=== PATIENT | male | born 1935 | race Caucasian/White ===

== ENCOUNTER 2018-04-01 08:15 | Emergency (ER) | payer OTHER ==
[~2018-04-01] VITALS: Ht 185.4 cm; Wt 133.8 kg
[~2018-04-01 08:15] MED LIST: ACID REDUCER 1150 MG PO; ALLO100 PO; AMIO200 PO; AMLO5 PO; ASPI81CH PO; ATOR10; ATOR10 PO; Amiodarone HCl200 MG PO; Ativan1 MG SL; IBUP800; Kristalose20 GM PO; LEVSOD125 PO; LEVSOD150; LEVSOD75 PO; LISI5 PO; MECL25 PO; METF500 PO; METO25ER PO; METO50ER PO; OMEP20ER PO; OXYACE5T PO; PROC25S PR; Pepcid40 MG PO; Prilosec Otc20 MG; RXOXYACE PO; Toprol Xl25 MG PO; [UNRECOGNIZED DRUG - OTHER]; [UNRECOGNIZED DRUG - REMARK]
[2018-04-01 08:49] LABS: BASOPHILS ABSOLUTE AUTO 0.05 K/mm3 (0.00-0.23); BASOPHILS PERCENT AUTO 0 % (0-2); EOSINOPHILS ABSOLUTE AUTO 0.31 K/mm3 (0.00-0.68); EOSINOPHILS PERCENT AUTO 2 % (0-6); Hematocrit 40.2 % (37.0-53.0); Hemoglobin 13.1 g/dL (13.5-17.5); IMMATURE GRAN ABSOLUTE AUTO 0.03 K/mm3 (0.00-0.10); IMMATURE GRAN PERCENT AUTO 0 % (0-1); LYMPHOCYTES ABSOLUTE AUTO 0.83 K/mm3 (0.84-5.20); LYMPHOCYTES PERCENT AUTO 6 % (21-46); MONOCYTES ABSOLUTE AUTO 1.24 K/mm3 (0.16-1.47); MONOCYTES PERCENT AUTO 10 % (4-13); Mean Corpuscular HGB 28.6 pg (26.0-34.0); Mean Corpuscular HGB Conc 32.6 g/dL (31.5-36.5); Mean Corpuscular Volume 88 fL (80-100); Mean Platelet Volume 10.4 fL (9.1-12.4); NEUTROPHILS ABSOLUTE AUTO 10.66 K/mm3 (1.96-9.15); NEUTROPHILS PERCENT AUTO 81 % (41-73); Platelet Count 261 K/mm3 (150-400); RDW Coefficient Variation 14.6 % (11.7-14.2); RDW Standard Deviation 46.9 fL (35.1-46.3); Red Blood Cell Count 4.58 M/mm3 (4.30-5.90); White Blood Cell Count 13.12 K/mm3 (4.00-11.30)
[2018-04-01] MEDS ORDERED: TAMS.4ER PO (08:57)
[2018-04-01] MEDS ORDERED: ATOR10 PO (08:58)
[2018-04-01] MEDS ORDERED: AMLO5 PO (08:58)
[2018-04-01 08:59] LABS: International Normalized Ratio 1.03; Prothrombin Time Results 10.6 Sec (9.7-11.5)
[2018-04-01] MEDS ORDERED: FURO20 PO (08:59)
[2018-04-01] MEDS ORDERED: POTCHL10ER PO (08:59)
[2018-04-01] MEDS ORDERED: GABA300 PO (08:59)
[2018-04-01 09:08] LABS: Anion Gap 7 mmol/L (6-16); Blood Urea Nitrogen 32 mg/dL (8-24); Bun/Creatinine Ratio 23.2 (12.0-20.0); CO2, Blood 24 mmol/L (21-32); Calcium, Blood 8.7 mg/dL (8.5-10.1); Chloride, Blood 106 mmol/L (98-108); Creatinine, Blood 1.38 mg/dL (0.60-1.20); Glomerular Filtration Rate 52 (60-); Glucose, Blood 212 mg/dL (70-99); Potassium, Blood 4.3 mmol/L (3.5-5.5); Sodium, Blood 137 mmol/L (136-145); Troponin I <0.015 ng/mL (0.000-0.040)
[2018-04-01 11:15] LABS: Bilirubin, Urine Neg (Neg); Blood, Urine Neg (Neg); Glucose Qualitative, Urine Neg (Neg); Ketones, Urine Neg (Neg); Leukocyte Esterase, Urine Neg (Neg); Nitrite, Urine Neg (Neg); Protein, Urine Neg (Neg); Specific Gravity, Urine 1.015 (1.003-1.022); Urobilinogen, Urine NORM (Normal)
[2018-04-01 11:20] LABS: Appearance, Urine Clear (Clear); Color, Urine Yellow (P-Yellow)
[2018-04-01] MEDS ORDERED: Zithromax250 MG PO (12:01)
[2018-04-01] MEDS ORDERED: BENZ100A PO (12:03)
== END 2018-04-01 12:21 | disposition home or self-care (01) ==
LOC: ER 08:15
PROVIDERS: Emergency Medicine
DX: J44.0 Chronic obstructive pulmonary disease with (acute) lower respiratory infection (principal); J18.1 Lobar pneumonia, unspecified organism; Z88.1 Allergy status to other antibiotic agents; Z79.899 Other long term (current) drug therapy; Z79.84 Long term (current) use of oral hypoglycemic drugs; Z79.82 Long term (current) use of aspirin; I10 Essential (primary) hypertension; E03.9 Hypothyroidism, unspecified; Z87.891 Personal history of nicotine dependence
CPT/HCPCS: 36415; 71046; 80048; 81003; 83690; 83880; 84484; 85025; 85610; 93005; 93010; 94640; 96365; 99285-25; J0696

== ENCOUNTER 2018-09-23 07:38 | Day surgery (SDC) | payer OTHER ==
[~2018-09-23] VITALS: Ht 185.4 cm; Wt 137.0 kg
[~2018-09-23 07:38] MED LIST changes: +ALBU3IS INH; +BENZ100A PO; +FOLGARD TABLET1 EACH PO; +FURO20 PO; +GABA300 PO; +LEVSOD150 PO; +POTCHL10ER PO; +STIOLTO RESPIMAT4 GM INH; +TAMS.4ER PO; +Zithromax250 MG PO
--- NOTE | 2018-09-23 09:03 | NUR ---
PT LAYING IN BED RELAXING WITH CALL LIGHT IN REACH.
--- NOTE | 2018-09-23 10:42 | NUR ---
DR LOPEZ AND SANDY MARQUEZ WERE IN THE ROOM TO SEE THE PATIENT.
--- NOTE | 2018-09-24 07:19 | NUR ---
SUMMARY PT REMAINS A&O X4,TEGADERM DRSG C/D/I, LEFT ARM REMAINS ELEVATED IN SLING. PAIN MANAGED WITH PO ROXYCODONE. 1 ASSIST USING PERSONAL CANE. PT TO XRAY THIS AM. REPORT GIVEN TO DAY RN. CALL LIGHT IN REACH.
--- NOTE | 2018-09-24 11:33 | NUR ---
DC'D HOME, DC INSTRUCTIONS GIVEN, VERBALIZED UNDERSTANDING, PT GIVEN DC INST. HANDOUT FROM DR. LOPEZ'S OFFICE.
== END 2018-09-24 11:32 | disposition home or self-care (01) ==
LOC: MHTC 07:38 → SURS 13:22 → MHTC 09-24 11:32
DX: I44.30 Unspecified atrioventricular block (principal); I42.9 Cardiomyopathy, unspecified; I47.2 Ventricular tachycardia; I10 Essential (primary) hypertension; E11.9 Type 2 diabetes mellitus without complications; I25.10 Atherosclerotic heart disease of native coronary artery without angina pectoris; J44.9 Chronic obstructive pulmonary disease, unspecified; E78.5 Hyperlipidemia, unspecified; E03.9 Hypothyroidism, unspecified; M10.9 Gout, unspecified; Z88.1 Allergy status to other antibiotic agents; Z87.891 Personal history of nicotine dependence; Z79.899 Other long term (current) drug therapy; E66.01 Morbid (severe) obesity due to excess calories
CPT/HCPCS: 33249; 71045; 71046; 94640; 94760; 99152; 99153; A9270; C1721; C1895; C1898; J0690; J1644; J2250; J3010; J7040

== ENCOUNTER 2020-03-28 12:18 | Emergency (ER) | payer MEDICARE ==
[~2020-03-28] VITALS: Ht 185.4 cm; Wt 151.9 kg
[2020-03-28 14:15] LABS: BASOPHILS ABSOLUTE AUTO 0.06 K/mm3 (0.00-0.23); BASOPHILS PERCENT AUTO 1 % (0-2); EOSINOPHILS PERCENT AUTO 2 % (0-6); Hematocrit 42.6 % (37.0-53.0); Hemoglobin 13.5 g/dL (13.5-17.5); IMMATURE GRAN ABSOLUTE AUTO 0.02 K/mm3 (0.00-0.10); IMMATURE GRAN PERCENT AUTO 0 % (0-1); LYMPHOCYTES ABSOLUTE AUTO 0.96 K/mm3 (0.84-5.20); LYMPHOCYTES PERCENT AUTO 11 % (21-46); MONOCYTES ABSOLUTE AUTO 0.86 K/mm3 (0.16-1.47); MONOCYTES PERCENT AUTO 10 % (4-13); Mean Corpuscular HGB 29.5 pg (26.0-34.0); Mean Corpuscular HGB Conc 31.7 g/dL (31.5-36.5); Mean Corpuscular Volume 93 fL (80-100); Mean Platelet Volume 10.9 fL (9.1-12.4); NEUTROPHILS ABSOLUTE AUTO 6.92 K/mm3 (1.96-9.15); NEUTROPHILS PERCENT AUTO 77 % (41-73); Platelet Count 249 K/mm3 (150-400); RDW Coefficient Variation 14.5 % (11.7-14.2); RDW Standard Deviation 49.3 fL (35.1-46.3); Red Blood Cell Count 4.57 M/mm3 (4.30-5.90); White Blood Cell Count 9.02 K/mm3 (4.00-11.30)
[2020-03-28 14:29] LABS: Albumin, Blood 3.3 g/dL (3.4-5.0); Albumin/Globulin Ratio 0.8 (0.8-1.8); Bilirubin, Total 0.7 mg/dL (0.1-1.0); Bun/Creatinine Ratio 21.6 (12.0-20.0); Calcium, Blood 8.7 mg/dL (8.5-10.1); Creatinine, Blood 1.39 mg/dL (0.60-1.20); Globulin, Blood 4.1 g/dL (2.2-4.0); Potassium, Blood 4.9 mmol/L (3.5-5.5); Total Protein, Blood 7.4 g/dL (6.4-8.2); Troponin I 0.021 ng/mL (0.000-0.040)
== END 2020-03-28 16:39 | disposition home or self-care (01) ==
LOC: ER 12:18
PROVIDERS: Emergency Medicine
DX: I11.0 Hypertensive heart disease with heart failure (principal); R50.9 Fever, unspecified; E07.9 Disorder of thyroid, unspecified; E03.9 Hypothyroidism, unspecified; Z88.1 Allergy status to other antibiotic agents; Z87.891 Personal history of nicotine dependence; Z79.899 Other long term (current) drug therapy
CPT/HCPCS: 36415; 71045; 80053; 83880; 84484; 85025; 93005; 93010; 96374; 99285-25; J1940

== ENCOUNTER 2020-11-09 15:52 | Observation (INO) | payer MEDICARE ==
[~2020-11-09] VITALS: Ht 185.4 cm; Wt 159.7 kg
[2020-11-09 16:37] LABS: BASOPHILS ABSOLUTE AUTO 0.02 K/mm3 (0.00-0.23); BASOPHILS PERCENT AUTO 0 % (0-2); EOSINOPHILS PERCENT AUTO 0 % (0-6); Hematocrit 43.1 % (37.0-53.0); Hemoglobin 14.1 g/dL (13.5-17.5); IMMATURE GRAN ABSOLUTE AUTO 0.07 K/mm3 (0.00-0.10); IMMATURE GRAN PERCENT AUTO 1 % (0-1); LYMPHOCYTES ABSOLUTE AUTO 1.07 K/mm3 (0.84-5.20); LYMPHOCYTES PERCENT AUTO 9 % (21-46); MONOCYTES ABSOLUTE AUTO 0.73 K/mm3 (0.16-1.47); MONOCYTES PERCENT AUTO 6 % (4-13); Mean Corpuscular HGB 29.7 pg (26.0-34.0); Mean Corpuscular HGB Conc 32.7 g/dL (31.5-36.5); Mean Corpuscular Volume 91 fL (80-100); Mean Platelet Volume 10.8 fL (9.1-12.4); NEUTROPHILS PERCENT AUTO 84 % (41-73); Platelet Count 212 K/mm3 (150-400); RDW Coefficient Variation 14.6 % (11.7-14.2); RDW Standard Deviation 48.9 fL (35.1-46.3); Red Blood Cell Count 4.74 M/mm3 (4.30-5.90); White Blood Cell Count 11.49 K/mm3 (4.00-11.30)
[2020-11-09 16:57] LABS: Bilirubin, Total 0.7 mg/dL (0.1-1.0); Bun/Creatinine Ratio 22.8 (12.0-20.0); Calcium, Blood 9.9 mg/dL (8.5-10.1); Creatinine, Blood 2.19 mg/dL (0.60-1.20); Globulin, Blood 4.1 g/dL (2.2-4.0); Potassium, Blood 4.9 mmol/L (3.5-5.5); Total Protein, Blood 8.1 g/dL (6.4-8.2)
[2020-11-09 17:01] LABS: Free Thyroxine 0.17 ng/dL (0.70-1.60)
[2020-11-09 17:39] LABS: Source, Urine Clean Catch
[2020-11-09] MEDS ORDERED: METO25ER PO (17:44)
[2020-11-09 17:45] LABS: Appearance, Urine Clear (Clear); Bilirubin, Urine Neg (Neg); Blood, Urine 2+ (Neg); Color, Urine Yellow (P-Yellow); Glucose Qualitative, Urine 4+ (Neg); Ketones, Urine Neg (Neg); Leukocyte Esterase, Urine Neg (Neg); Nitrite, Urine Neg (Neg); Protein, Urine 1+ (Neg); Specific Gravity, Urine 1.015 (1.003-1.022); Urobilinogen, Urine NORM (Normal)
[2020-11-09] MEDS ORDERED: ALLO100 PO (17:45)
[2020-11-09] MEDS ORDERED: FLUO.01TC (17:46)
[2020-11-09 17:59] LABS: Bacteria Mod /hpf; Red Blood Cells, Urine Rare /hpf (0-2); Squamous Epithelial Cells Rare /hpf (Few); White Blood Cells, Urine Rare /hpf (0-5)
[2020-11-09] MEDS ORDERED: IPRAT-ALBUT 0.5-3 ML NEB (19:15)
[2020-11-09] MEDS ORDERED: LISI20 PO (19:17)
[2020-11-09] MEDS ORDERED: OZEMPIC0.25 MG/0. SC (19:18)
[2020-11-09] MEDS ORDERED: ANORO ELLIPTA1 EAC1 INH (19:18)
[2020-11-09] MEDS ORDERED: METFORMIN HCL500 M3 PO (19:21)
[2020-11-09] MEDS ORDERED: SYNTHROID125 MC1 PO (19:23)
[2020-11-09] MEDS ORDERED: ATORVASTATIN CA20 MG PO (19:23)
[2020-11-10 05:41] LABS: BASOPHILS ABSOLUTE AUTO 0.04 K/mm3 (0.00-0.23); BASOPHILS PERCENT AUTO 0 % (0-2); EOSINOPHILS ABSOLUTE AUTO 0.07 K/mm3 (0.00-0.68); EOSINOPHILS PERCENT AUTO 1 % (0-6); Hematocrit 42.4 % (37.0-53.0); Hemoglobin 13.8 g/dL (13.5-17.5); IMMATURE GRAN ABSOLUTE AUTO 0.04 K/mm3 (0.00-0.10); IMMATURE GRAN PERCENT AUTO 0 % (0-1); LYMPHOCYTES ABSOLUTE AUTO 1.45 K/mm3 (0.84-5.20); LYMPHOCYTES PERCENT AUTO 14 % (21-46); MONOCYTES ABSOLUTE AUTO 0.77 K/mm3 (0.16-1.47); MONOCYTES PERCENT AUTO 8 % (4-13); Mean Corpuscular HGB 29.6 pg (26.0-34.0); Mean Corpuscular HGB Conc 32.5 g/dL (31.5-36.5); Mean Corpuscular Volume 91 fL (80-100); Mean Platelet Volume 10.8 fL (9.1-12.4); NEUTROPHILS ABSOLUTE AUTO 7.93 K/mm3 (1.96-9.15); NEUTROPHILS PERCENT AUTO 77 % (41-73); Platelet Count 193 K/mm3 (150-400); RDW Coefficient Variation 14.7 % (11.7-14.2); RDW Standard Deviation 48.9 fL (35.1-46.3); Red Blood Cell Count 4.66 M/mm3 (4.30-5.90)
--- NOTE | 2020-11-10 06:20 | NUR ---
SHIFT SUMMARY NEW ER ADMIT THIS SHIFT, NO ACUTE CHANGES SINCE ASSUMING CARE, NO C/O ANY KIND, SLEPT T/O THE NIGHT SLEEPING AT THIS TIME, USES CALL LIGHT APPROP, ABLE TO MAKE NEEDS KNOWN. [facility]IL REPORT GIVEN TO DAY RN.
[2020-11-10 06:23] LABS: Albumin, Blood 3.6 g/dL (3.4-5.0); Anion Gap 7 mmol/L (6-16); Blood Urea Nitrogen 52 mg/dL (8-24); CO2, Blood 29 mmol/L (21-32); Calcium, Blood 9.6 mg/dL (8.5-10.1); Chloride, Blood 99 mmol/L (98-108); Creatinine, Blood 2.17 mg/dL (0.60-1.20); Glomerular Filtration Rate 29 (60-); Glucose, Blood 291 mg/dL (70-99); Magnesium, Blood 2.2 mg/dL (1.6-2.4); Phosphorus, Blood 2.9 mg/dL (2.5-4.9); Potassium, Blood 4.4 mmol/L (3.5-5.5); Sodium, Blood 135 mmol/L (136-145); Uric Acid, Blood 8.8 mg/dL (3.5-7.2)
--- NOTE | 2020-11-10 18:30 | NUR ---
Update 11/10/20: Per chart review with Dr. Maldonado this am, Dr. Aggarwal will be consulting regarding patients care. It is likely that pt. might be appropriate for discharge in the next 24-48 hours. Will provide discharge planning and care coordination when indicated. OT indicating a need for HHC, life alert, walker, and shower chair. I will discuss DME with pt. in the am.
--- NOTE | 2020-11-10 18:56 | NUR ---
PATIENT A/OX4, UP WITH PT/OT TODAY WITH FWW AND 1 ASSIST. MAINTAINING SATS ON RA. DENIES ANY PAIN. TOLERATING ADA DIET. ACHS BLOOD SUGARS. BLOOD SUGARS REMAINS ELEVATED. 5 UNITS NOVOLOG ADDED WITH MEALS ALONG WITH MEDIUM SS. ECHO COMPLETED TODAY AND RENAL ULTRASOUND. PATIENT VOIDING IN URINAL. VSS, SOB WITH EXERTION. CALM AND COOPERATIVE WITH CARE THIS SHIFT, CALLING APPROPRIATELY FOR ASSISTANCE.
--- NOTE | 2020-11-11 03:55 | NUR ---
SHIFT SUMMARY NO ACUTE CHANGES THIS SHIFT, A&O W/CONFUSION WHEN WAKING, VSS, NS INFUSING, BED ALARM ACTIVE, SLEEPING AT THIS TIME, CALL LIGHT IN REACH, WILL CONT TO MONITOR UNTIL REPORT GIVEN TO DAY RN.
[2020-11-11 05:49] LABS: BASOPHILS ABSOLUTE AUTO 0.07 K/mm3 (0.00-0.23); BASOPHILS PERCENT AUTO 1 % (0-2); EOSINOPHILS ABSOLUTE AUTO 0.27 K/mm3 (0.00-0.68); EOSINOPHILS PERCENT AUTO 3 % (0-6); Hematocrit 43.7 % (37.0-53.0); Hemoglobin 14.3 g/dL (13.5-17.5); IMMATURE GRAN ABSOLUTE AUTO 0.03 K/mm3 (0.00-0.10); IMMATURE GRAN PERCENT AUTO 0 % (0-1); LYMPHOCYTES ABSOLUTE AUTO 1.46 K/mm3 (0.84-5.20); LYMPHOCYTES PERCENT AUTO 18 % (21-46); MONOCYTES ABSOLUTE AUTO 0.56 K/mm3 (0.16-1.47); MONOCYTES PERCENT AUTO 7 % (4-13); Mean Corpuscular HGB 29.8 pg (26.0-34.0); Mean Corpuscular HGB Conc 32.7 g/dL (31.5-36.5); Mean Corpuscular Volume 91 fL (80-100); Mean Platelet Volume 10.7 fL (9.1-12.4); NEUTROPHILS ABSOLUTE AUTO 5.67 K/mm3 (1.96-9.15); NEUTROPHILS PERCENT AUTO 70 % (41-73); Platelet Count 187 K/mm3 (150-400); RDW Coefficient Variation 14.7 % (11.7-14.2); RDW Standard Deviation 49.1 fL (35.1-46.3); White Blood Cell Count 8.06 K/mm3 (4.00-11.30)
[2020-11-11 06:39] LABS: Bun/Creatinine Ratio 26.5 (12.0-20.0); Calcium, Blood 9.5 mg/dL (8.5-10.1); Potassium, Blood 4.5 mmol/L (3.5-5.5)
--- NOTE | 2020-11-11 17:51 | NUR ---
PATIENT A/OX4, UP WITH FWW AND 1 ASSIST. SEEN BY PT/OT AND HOME WITH HOME HEALTH IS RECOMMENDED. SKIN INTACT. TOLERATING ADA DIET. ACHS BLOOD SUGARS, LONG ACTING INCREASED TODAY. VSS, ON RA. SOB WITH EXERTION. IV TO L FA WNL AND SL. CALM AND COOPERATIVE WITH CARE, CALLS APPROPRIATELY FOR ASSISTANCE.
--- NOTE | 2020-11-12 05:47 | NUR ---
SHIFT SUMMARY A/O, ABLE TO MAKE NEEDS KNOWN. COOPERATIVE WITH CARE. ANSWERS QUESTIONS APPROPRIATELY. NO ACUTE CHANGES NOTED OVERNIGHT. APPEARED TO REST MUCH OF THE NIGHT. BED REMAINS IN LOWEST POSITION. CALL LIGHT AND BELONGINGS WITHIN REACH. CONTINUE [facility] CURRENT PLAN OF CARE.
--- NOTE | 2020-11-12 06:28 | NUR ---
SHIFT SUMMARY NO ACUTE ISSUES NOTED THIS SHIFT. CALL LIGHT WITHIN REACH. IV PATENT AND FLUSHED.
[2020-11-12] MEDS ORDERED: LEVSOD150 PO (14:09)
[2020-11-12] MEDS ORDERED: NOVOLOG FL100 UNIT/3 SC (14:15)
[2020-11-12] MEDS ORDERED: INSULANPEN SC (14:18)
--- NOTE | 2020-11-12 17:30 | NUR ---
PT WAS DISCHARGED ALERT AND ORIENTED MAKING NO COMPLAINTS. PT WAS EDUCATED ON MEDICATIONS AND FOLLOW APPOINTMENTS NEEDED. WAS ABLE TO VERBALIZE UNDERSTANDING. LEFT VIA WHEELCHAIR AND MET BY FAMILY FOR TRANSPORT HOME.
--- NOTE | 2020-11-14 09:00 | NUR ---
IMPORTANT DISCHARGE DETAILS: PATIENT AND CAREGIVER ADVISED THAT PT. NEEDS TO BRING MEDICATIONS TO HOSPITAL F/U APPT. THERE WAS QUITE A BIT OF CONFUSION REGARDING HIS MEDICATIONS. NEED TO ENSURE THAT MEDICATIONS WERE PICKED UP FROM THE PHARMACY AND THAT PATIENT IS TAKING ONLY THOSE ON THE FINAL LIST THAT DR. SANTIAGO PREPARED. I HAVE ADDED CHRONIC CARE MANAGEMENT REFERRAL TO CHART. FAMILY HAS BEEN ASKED TO ASSIST PATIENT WITH MEDICATIONS. FOLLOW-UP LABS INDICATED AND VISIT NEEDED WITHIN ONE WEEK.
== END 2020-11-12 16:01 | disposition home or self-care (01) ==
LOC: ER 15:52 → MEDS 15:53 → ERHOLD 15:53 → MEDS 15:54 → ERHOLD 19:11 → MEDS 19:11 → ER 19:11 → MEDS 21:45 → ERHOLD 21:45 → MEDS 11-12 16:01
PROVIDERS: Emergency Medicine; Physician Assistant; ADMIT Hospitalist
DX: E11.65 Type 2 diabetes mellitus with hyperglycemia (principal); N17.9 Acute kidney failure, unspecified; I13.0 Hypertensive heart and chronic kidney disease with heart failure and stage 1 through stage 4 chronic kidney disease, or unspecified chronic kidney disease; I50.9 Heart failure, unspecified; E11.22 Type 2 diabetes mellitus with diabetic chronic kidney disease; N18.32 Chronic kidney disease, stage 3b; I48.0 Paroxysmal atrial fibrillation; J44.9 Chronic obstructive pulmonary disease, unspecified; E03.9 Hypothyroidism, unspecified; E78.5 Hyperlipidemia, unspecified; M10.9 Gout, unspecified; I44.0 Atrioventricular block, first degree; I35.0 Nonrheumatic aortic (valve) stenosis; N52.9 Male erectile dysfunction, unspecified; E66.01 Morbid (severe) obesity due to excess calories; I25.10 Atherosclerotic heart disease of native coronary artery without angina pectoris; N40.0 Benign prostatic hyperplasia without lower urinary tract symptoms; Z87.891 Personal history of nicotine dependence; Z68.42 Body mass index [BMI] 45.0-49.9, adult; Z91.14 Patient's other noncompliance with medication regimen
CPT/HCPCS: 36415; 76770; 80048; 80053; 80069; 81001; 82947; 83036; 83690; 83735; 83880; 84439; 84443; 84550; 85025; 87086; 93005; 93010; 93306; 94640; 94664; 94760; 96372; 97116; 97116-CQ; 97161; 97165; 97530; 97530-CO; 97530-CQ; 97535; 97535-CO; 99284-25; A9270; G0378; J1650; J1815; J7030

== ENCOUNTER 2021-04-11 15:17 | Inpatient (IN) | payer MEDICARE ==
[~2021-04-11] VITALS: Ht 188 cm; Wt 151.5 kg
[~2021-04-11 15:17] MED LIST changes: +ANORO ELLIPTA1 EAC1 INH; +ATORVASTATIN CA20 MG PO; +FLUO.01TC; +INSULANPEN SC; +IPRAT-ALBUT 0.5-3 ML NEB; +LISI20 PO; +METFORMIN HCL500 M3 PO; +NOVOLOG FL100 UNIT/3 SC; +OZEMPIC0.25 MG/0. SC; +SYNTHROID125 MC1 PO
[2021-04-11 16:21] LABS: BASOPHILS ABSOLUTE AUTO 0.05 K/mm3 (0.00-0.23); BASOPHILS PERCENT AUTO 1 % (0-2); EOSINOPHILS ABSOLUTE AUTO 0.04 K/mm3 (0.00-0.68); EOSINOPHILS PERCENT AUTO 0 % (0-6); Hematocrit 39.4 % (37.0-53.0); Hemoglobin 13.1 g/dL (13.5-17.5); IMMATURE GRAN ABSOLUTE AUTO 0.09 K/mm3 (0.00-0.10); IMMATURE GRAN PERCENT AUTO 1 % (0-1); LYMPHOCYTES ABSOLUTE AUTO 0.35 K/mm3 (0.84-5.20); LYMPHOCYTES PERCENT AUTO 4 % (21-46); MONOCYTES PERCENT AUTO 16 % (4-13); Mean Corpuscular HGB 29.4 pg (26.0-34.0); Mean Corpuscular HGB Conc 33.2 g/dL (31.5-36.5); Mean Corpuscular Volume 88 fL (80-100); NEUTROPHILS ABSOLUTE AUTO 7.58 K/mm3 (1.96-9.15); NEUTROPHILS PERCENT AUTO 79 % (41-73); NRBC ABSOLUTE 0.02 K/mm3 (0.00-0.02); NRBC Auto 0.2 /100 WBC (0.0-0.2); RDW Coefficient Variation 14.6 % (11.7-14.2); RDW Standard Deviation 47.2 fL (35.1-46.3); Red Blood Cell Count 4.46 M/mm3 (4.30-5.90); White Blood Cell Count 9.61 K/mm3 (4.00-11.30)
[2021-04-11 16:22] LABS: Mean Platelet Volume 11.3 fL (9.1-12.4)
[2021-04-11 16:24] LABS: Albumin, Blood 3.4 g/dL (3.4-5.0); Albumin/Globulin Ratio 0.8 (0.8-1.8); Bilirubin, Total 1.1 mg/dL (0.1-1.0); Bun/Creatinine Ratio 20.8 (12.0-20.0); Calcium, Blood 8.8 mg/dL (8.5-10.1); Creatinine, Blood 1.49 mg/dL (0.60-1.20); Globulin, Blood 4.2 g/dL (2.2-4.0); Potassium, Blood 4.3 mmol/L (3.5-5.5); Total Protein, Blood 7.6 g/dL (6.4-8.2); Troponin I 0.07 ng/mL (0.000-0.040)
[2021-04-11 16:28] LABS: PCO2 Arterial 48.6 mmHg (35-45); PO2 Arterial 66.6 mmHg (80-100); pH Blood Arterial 7.38 (7.35-7.45)
[2021-04-11 16:48] LABS: Platelet Count 157 K/mm3 (150-400)
[2021-04-12 04:17] LABS: BASOPHILS ABSOLUTE AUTO 0.03 K/mm3 (0.00-0.23); BASOPHILS PERCENT AUTO 0 % (0-2); EOSINOPHILS ABSOLUTE AUTO 0.01 K/mm3 (0.00-0.68); EOSINOPHILS PERCENT AUTO 0 % (0-6); Hematocrit 42.9 % (37.0-53.0); Hemoglobin 13.9 g/dL (13.5-17.5); IMMATURE GRAN ABSOLUTE AUTO 0.04 K/mm3 (0.00-0.10); IMMATURE GRAN PERCENT AUTO 0 % (0-1); LYMPHOCYTES ABSOLUTE AUTO 0.24 K/mm3 (0.84-5.20); LYMPHOCYTES PERCENT AUTO 3 % (21-46); MONOCYTES ABSOLUTE AUTO 1.25 K/mm3 (0.16-1.47); MONOCYTES PERCENT AUTO 14 % (4-13); Mean Corpuscular HGB 29.6 pg (26.0-34.0); Mean Corpuscular HGB Conc 32.4 g/dL (31.5-36.5); Mean Corpuscular Volume 91 fL (80-100); Mean Platelet Volume 10.5 fL (9.1-12.4); NEUTROPHILS ABSOLUTE AUTO 7.51 K/mm3 (1.96-9.15); NEUTROPHILS PERCENT AUTO 83 % (41-73); Platelet Count 158 K/mm3 (150-400); RDW Coefficient Variation 14.6 % (11.7-14.2); RDW Standard Deviation 49.4 fL (35.1-46.3); White Blood Cell Count 9.08 K/mm3 (4.00-11.30)
[2021-04-12 04:46] LABS: Albumin, Blood 3.6 g/dL (3.4-5.0); Anion Gap 10 mmol/L (6-16); Blood Urea Nitrogen 32 mg/dL (8-24); Bun/Creatinine Ratio 21.9 (12.0-20.0); CO2, Blood 27 mmol/L (21-32); Calcium, Blood 8.9 mg/dL (8.5-10.1); Chloride, Blood 100 mmol/L (98-108); Creatinine, Blood 1.46 mg/dL (0.60-1.20); Glomerular Filtration Rate 46 (60-); Glucose, Blood 154 mg/dL (70-99); Phosphorus, Blood 2.8 mg/dL (2.5-4.9); Potassium, Blood 3.8 mmol/L (3.5-5.5); Sodium, Blood 137 mmol/L (136-145)
--- NOTE | 2021-04-12 06:22 | NUR ---
SHIFT SUMMARY ASSUMED CARE OF PT AT 214. PT IS A/OX4 BUT VERY [place]. HEART SOUNDS ERGULAR BUT PT CONVERTED TO AFIB AT 0140 AND REMAINED IN AFIB SINCE. LUNG SOUNDS AHVE COURSE CRACKLES AT THE BASES. PT CAME TO THE UNIT ON 3L NC BUT WAS TITRATED TO 5L. PT WILL TAKE OFF NC SATING "I CAN'T BREATH WITH IT ON". PT ATTEMPTED TO SLEEP IN THE BED BUT IS NOW IN RECLINER DUE TO SOB. OT URINE IS CLEAR YELLOW BUT PT HAS URGENCY. PT GULPS DOWN CUPS OF WATER WHEN HE CAN. PT HAS AUDIBLE CRACKLES NOW. CALLED WHO ORDRED ANOTHER DOSE OF LASIX. PT IS A 1P ASSIT WITH WALKER. PT HAS EXCORIATED MAGNUS AREA, HOSPITALIST NOTIFED AND ORDERED POWDER. PICTURES IN CHART. PT STATED CLEARLY THAT HE DOES NOT WANT EXTREME MEASURES TO BRING HIM BACK IF HIS HEART STOPS, DISCUSSED THIS WITH ADMITTING DOCTOR WHO AGREED WITH PT TO CHANGE CODE STATUS TO DNR. CALL LIGHT IN REACH.
[2021-04-12 11:23] LABS: Source, Urine Foley catheter
--- NOTE | 2021-04-12 11:32 | NUR ---
Echocardiogram completed.
[2021-04-12 11:59] LABS: Appearance, Urine Clear (Clear); Bilirubin, Urine Neg (Neg); Blood, Urine Neg (Neg); Color, Urine Yellow (P-Yellow); Glucose Qualitative, Urine Neg (Neg); Ketones, Urine Neg (Neg); Leukocyte Esterase, Urine Neg (Neg); Nitrite, Urine Neg (Neg); Protein, Urine Neg (Neg); Specific Gravity, Urine 1.015 (1.003-1.022); Urobilinogen, Urine NORM (Normal)
--- NOTE | 2021-04-12 14:23 | NUR ---
Spoke with Dr Betancourt this AM and discussed case. Pt has poor long term care phlebotomist prognosis and may benefit from advanced care planning and goals of care discussion. Pt resting in bed upon arrival. Pt on 10 LO2 via NC. Pt radha pain at this time. Pt appears dyspneic with wet breathing noted. Engaged in therapeutic discussion regarding advanced care planning. Assessed Pt's understanding on his current condition and health. Educated on disease process including trajectory. Discussed the importance of considering one's own goals and values. Discussed consideration of focusing on comfort and quality in the near future. (Pt's girlfriend Urmila on speaker phone for much of the conversation). Reviewed current plan of care. Pt does not give any indication or thought process at this time. Encouraged Pt to have discussion with family. Received verbal permission from Pt to call daughter Gypsy. Called and spoke with daughter Gypsy. Provided update on current plan of care and relayed conversation that took place with Pt. Gypsy expresses appreciation of conversation and will call her sister (Pt's other daughter Bria). Latasha [phone], Palliative Care will remain available for therapeutic and supportive visits.
--- NOTE | 2021-04-12 15:46 | NUR ---
Initial Interview with [facility] Community Pathology Assistant 1. Who did you speak with? Spoke with patient 2. What is the patient's prior level of functions? Patient lives with his daughter Gypsy and her family. Gypsy assists with ADL's such as cooking, cleaning, medication management, and transportation needs. Patient lives in a single story home, no stairs to navigate. Patient able to shower, brush/floss, and take care of personal ADL's independently. Patient has a girlfriend named Urmila. 3. What is the patient's current living situation? Patient lives his daughter Gypsy 4. Is the patient and/or family able to provide transportation to and from doctor's appointments and order picker prescriptions? Patient not able to drive. Daughter and son-in-law provide transportation as needed. 5. Does patient still drive? No 6. POA/PCP/NOK: Edouard Betancur [phone]/PCP REGULATORY COMPLIANCE SPECIALIST Nessa Putnam 7. Discharge goals: Palliative care/TBD -Home Health/Hospice-TBD -Medication Management: Edouard Betancur assists -Preferred Pharmacy: [facility] -Housekeeping need: patient able to perform independently -Cooking: patient able to perform independently 8. List barriers to discharge: None known at this time 9. Discharge Plan: TBD 10. PCP Follow up appointment: Will be scheduled within seven calendar days of discharge 11. Other Notes: None
--- NOTE | 2021-04-12 17:44 | NUR ---
SHIFT SUMMARY; ASSUMED CARE AT 0700. A/A/OX3. INTERMITANT CONFUSION, 5L NC TO MAINTAIN SATS OF 95%. DESATURATION WITH EXERTION. L/S COARSE AND WET. CHAVEZ CATH PLACED TODAY. MAGNUS AREA AND PANUS RED WITH YEAST. MICONAZOLE PER EMAR. COCCYX RED, MEPILEX PLACED. REPOSITIONS SELF IN BED. ASSISTED TO RECLINER CHAIR WITH 2 PERSON ASSIST AND WALKER. PALLATIVE CARE MET WITH PT TODAY, ECHO COMPLETE. WILL CONTINUE TO MONITOR AND TREAT UNTIL CHANGE OF SHIFT.
--- NOTE | 2021-04-13 01:13 | NUR ---
ASSUMED CARE OF PATIENT AT 1900. PATIENT WAS SITTING IN CHAIR TAKING A NAP. A/OX2-3. CONFUSION SEEMED TO GET WORSE THE NIGHT CONTINUED ON, WITH PATIENT PULLING AT LINES AND SAYING "I DONT EVEN KNOW WHY I WOULD DO THAT". MAINTAINS OVER 92% ON 8L NC. LS COARSE T/O. VERY WET BREATHING/COUGH NOTED. PATIENT COUGHS BUT NOT WITH ENOUGH STRENGTH TO GET THE MUCUS OUT. VSS. 2+ PITTING EDEMA BLE, TRACE IN BUE. URINARY CATHETER DRAINING TO GRAVITY RED TINGED URINE. PATIENT HAD AN EPISODE OF PULLING ON IT EARLIER IN THE DAY AND ITS BEEN LIKE THAT SINCE. I RECHECKED PLACEMENT OF THE BALLOON TO ENSURE IT ISN'T IN THE URETHRA. SLIGHT PENILE DRAINAGE NOTED ALONG WITH REDNESS. PATIENT CONTINUES TO TRY TO PULL AT IT. STAGE 1 PRESSURE SORE ON BOTTOM COVERED WITH MEPILEX. MAGNUS AREA IS VERY RED. WILL UPDATE CHANGES OCCUR.
[2021-04-13 07:54] LABS: BASOPHILS ABSOLUTE AUTO 0.02 K/mm3 (0.00-0.23); BASOPHILS PERCENT AUTO 0 % (0-2); EOSINOPHILS PERCENT AUTO 0 % (0-6); Hematocrit 39.9 % (37.0-53.0); Hemoglobin 12.5 g/dL (13.5-17.5); IMMATURE GRAN ABSOLUTE AUTO 0.02 K/mm3 (0.00-0.10); IMMATURE GRAN PERCENT AUTO 0 % (0-1); LYMPHOCYTES ABSOLUTE AUTO 0.69 K/mm3 (0.84-5.20); LYMPHOCYTES PERCENT AUTO 12 % (21-46); MONOCYTES PERCENT AUTO 20 % (4-13); Mean Corpuscular HGB 28.9 pg (26.0-34.0); Mean Corpuscular HGB Conc 31.3 g/dL (31.5-36.5); Mean Corpuscular Volume 92 fL (80-100); Mean Platelet Volume 10.6 fL (9.1-12.4); NEUTROPHILS ABSOLUTE AUTO 4.08 K/mm3 (1.96-9.15); NEUTROPHILS PERCENT AUTO 68 % (41-73); Platelet Count 146 K/mm3 (150-400); RDW Coefficient Variation 14.5 % (11.7-14.2); RDW Standard Deviation 49.9 fL (35.1-46.3); Red Blood Cell Count 4.32 M/mm3 (4.30-5.90); White Blood Cell Count 6.01 K/mm3 (4.00-11.30)
[2021-04-13 08:26] LABS: Albumin, Blood 3.1 g/dL (3.4-5.0); Anion Gap 8 mmol/L (6-16); Blood Urea Nitrogen 40 mg/dL (8-24); CO2, Blood 29 mmol/L (21-32); Calcium, Blood 8.4 mg/dL (8.5-10.1); Chloride, Blood 100 mmol/L (98-108); Glomerular Filtration Rate 41 (60-); Glucose, Blood 104 mg/dL (70-99); Magnesium, Blood 2.2 mg/dL (1.6-2.4); Phosphorus, Blood 3.6 mg/dL (2.5-4.9); Potassium, Blood 3.6 mmol/L (3.5-5.5); Sodium, Blood 137 mmol/L (136-145); Troponin I 0.105 ng/mL (0.000-0.040)
--- NOTE | 2021-04-13 11:58 | NUR ---
Spoke with Dr Betancourt this AM and discussed case. Pt and family meeting regarding goals of care and potential decisions may be beneficial. Pt resting in bed and appears to be talking to self upon entry to room. Pt slightly confused in comparison to yesterday. Pt knows he is in the hospital but does not know why. Pt verbalizes correct year. Pt currently on 6 LO2 via NM. Spoke with Primary RN Iris and discussed case. Spoke with salad bar clerk Fernando and discussed case. Fernando is in agreement for one time meeting with family for goals of care discussion. Called and spoke with Pt's sister Latasha. Relayed request for family meeting. Latasha reports inability to drive but will call her sister and will call this PC RN back. Palliative Care will remain available.
--- NOTE | 2021-04-13 17:25 | NUR ---
SHIFT SUMMARY; ASSUMED CARE AT 0700. BILATERAL WRIST RESTRAINTS DC'D AT 0800, AWAKE AND FOLLOWING INSTRUCTIONS. 02 DECREASED TO 4L WITH [employer] 02 SAT OF 88% PER DR. URBINA. MOVES ALL FOUR EXTREMETIES BUT NEEDS ASSISTANCE WITH REPOSITIONING. L/S COARSE THROUGOUT. UP TO RECLINER WITH 2 PERSON ASSIST AND WALKER. CHAVEZ CATH IN PLACE DRAINING YELLOW URINE TO GRAVITY. MICANOZOLE APPLIED TO MAGNUS AREA RASH PER EMAR. FAMILY MEETING SCHEDULED FOR TOMORROW TO DISCUSS PROGNOSIS WITH PALLATIVE CARE RN. WILL CONTINUE TO MONITOR AND TREAT UNTIL CHANGE OF SHIFT.
--- NOTE | 2021-04-14 06:15 | NUR ---
SHIFT SUMMARY ASSUMED CARE OF PT AT 1900. PT IS ALERT BUT NOT ORIENTED. PT WAS TEARING AT LINES AND TOOK OUT HIS IV; RESTRAINTS APPLIED. PT REMAINED IN RESTRAINTS T/O THE NIGHT BUT MANAGED TO SLIP OUT OF A RESTRAINT AND TAKE OFF HIS OXYGEN, IN WHICH HE DESATURATED TO 83%. PT WAS AT 10L NC TO RECOUPERATE BUT IS NOW ON 3L IN THE AM. LUNG SOUNDS HAVE CRACKLES AT THE BASES. HEART SOUNDS REGULAR. PT HAS A CHAVEZ DRAINING CLEAR YELLOW URINE. PT SLEPT MOST OF THE NIGHT BUT OCCASIONALLY WOULD WAKE UP AND ASK FOR SCISSORS TO CUT RESTRAINTS. CALL LIGHT IN REACH, BED IN LOWEST POSITION, CAMERA MONITORING.
--- NOTE | 2021-04-14 13:25 | NUR ---
Pt sitting in recliner chair with his eyes closed. Pt's respirations sound wet. Pt currently on 7 LO2 via NC. This RN did not disturb Pt at this time. Primary RN not available at this time. Spoke with subscription clerk Vivian and discussed case. Pt more confused today. Plan to meet with family at 1700 today to discuss goals of care. Palliative Care will remain available.
--- NOTE | 2021-04-14 17:50 | NUR ---
Meeting with Pt's daughters Bria Thornton, this PC RN, and Dr Maldonado. Pt resting in bed with his eyes closed. Pt remains with his eyes closed for much of the meeting. Dr Maldonado provides update and prognosis. Goals of care discussed with options for continued treatment and considering comfort care. Educated on comfort care philosophy. Questions answered and therapeutic listening offered. Family reports Pt would want to focus on comfort at this point in his life and elect comfort care. Continued therapeutic listening and offered emotional support. Family expresses appreciation and report no other concerns at this time. Spoke with Primary RN Jonny, implementation specialist payroll Vivian, and discussed case. Placed comfort care order and comfort care order set per V/O from Dr Maldonado. Diuretics continued for comfort. PPS 30% Palliative Care will remain available for symptom management and supportive visits.
--- NOTE | 2021-04-14 17:58 | NUR ---
SHIFT SUMMARY PT HAS BEEN RESTING IN BED AND CHAIR. PT TRANSFERRED TO CHAIR BY ONE PERSON ASSIST WITH GAIT BELT AND WALKER AND REQUIRED A TWO PERSON ASSIST WITH GAIT BELT AND WALKER TO RETURN TO BED. PT HAS DENIED C/O PAIN OR DISCOMFORT, THOUGH VISUALLY APPEARS UNCOMFORTABLE, THIS HAS BEEN ADDRESSED WITH REPOSITIONING. PT HAS TRANSITIONED TO COMFORT CARE THIS EVENING, NEW ORDERS HAVE BEEN ACKNOWLEDGED AND PT WILL BE ASSESSED AND TREATED ACCORDINGLY.
--- NOTE | 2021-04-15 05:26 | NUR ---
Patient entered comfort care in the end of dayshift. Patient was frequently repositioned and checked for comfort. Medicated for air hunger and secretions per emar with great relief per patient report. Sat with patient frequently to provide moral support. Will continue to assess patient's comfort, and pass along information to dayshift.
--- NOTE | 2021-04-15 17:57 | NUR ---
SHIFT SUMMARY PT HAS BEEN RESTING IN BED. PT HAS BEEN SOMNOLENT AND DIFFICULT TO ROUSE. PT HAS BEEN UNABLE TO VERBALIZE ANY PAIN OR DISCOMFORT. PT ATTEMPTED TO SPEAK THIS AM BUT WAS UNINTELLIGIBLE. PT HAS BEEN REPOSITIONED AND TREATED PER EMAR. FAMILY MEMBERS HAVE COME AND GONE THROUGHOUT THE DAY TO SIT WITH PT. HOSPITAL CRANE HOIST OR LIFT OPERATOR VISITED WITH PT AND FAMILY IN THE EVENING. FAMILY STATES THAT PAIN AND COMFORT IS MANAGED TO THEIR SATISFACTION.
--- NOTE | 2021-04-15 18:04 | NUR ---
Upon receiving a call-back requesting spiritual care, I visit pt. Pt is nonresponsive and family is present and tearful. I conduct a life review, and provide anticipatory grief support and prayer. Family responds well and show signs of being comforted.
== END 2021-04-16 01:55 | DRG 291 ==
LOC: ER 15:17 → PCU 21:27
PROVIDERS: Family Medicine; Student in an Organized Health Care Education/Training Program; ADMIT Family Medicine
PROC: 3E02340 Introduction of Influenza Vaccine into Muscle, Percutaneous Approach (ICD-10-PCS; principal; 2021-04-11)
PROC: 5A0945A Assistance with Respiratory Ventilation, 24-96 Consecutive Hours, High Flow/Velocity Cannula (ICD-10-PCS; 2021-04-12)
DX: I13.0 Hypertensive heart and chronic kidney disease with heart failure and stage 1 through stage 4 chronic kidney disease, or unspecified chronic kidney disease (principal); J96.01 Acute respiratory failure with hypoxia; I50.43 Acute on chronic combined systolic (congestive) and diastolic (congestive) heart failure; I24.8 Other forms of acute ischemic heart disease; Z66 Do not resuscitate; Z51.5 Encounter for palliative care; F05 Delirium due to known physiological condition; Z20.822 Contact with and (suspected) exposure to COVID-19; D63.1 Anemia in chronic kidney disease; Z23 Encounter for immunization; N18.30 Chronic kidney disease, stage 3 unspecified; E11.22 Type 2 diabetes mellitus with diabetic chronic kidney disease; Z78.1 Physical restraint status; N40.0 Benign prostatic hyperplasia without lower urinary tract symptoms; E55.9 Vitamin D deficiency, unspecified; J44.9 Chronic obstructive pulmonary disease, unspecified; F32.A Depression, unspecified; I25.10 Atherosclerotic heart disease of native coronary artery without angina pectoris; M10.9 Gout, unspecified; E78.5 Hyperlipidemia, unspecified; E03.9 Hypothyroidism, unspecified; F03.90 Unspecified dementia, unspecified severity, without behavioral disturbance, psychotic disturbance, mood disturbance, and anxiety; E66.01 Morbid (severe) obesity due to excess calories; G47.33 Obstructive sleep apnea (adult) (pediatric); Z68.38 Body mass index [BMI] 38.0-38.9, adult; I35.0 Nonrheumatic aortic (valve) stenosis; Z90.49 Acquired absence of other specified parts of digestive tract; Z98.890 Other specified postprocedural states; Z95.810 Presence of automatic (implantable) cardiac defibrillator; Z79.4 Long term (current) use of insulin; Z79.899 Other long term (current) drug therapy; Z88.1 Allergy status to other antibiotic agents
CPT/HCPCS: 36415; 36600; 71046; 80053; 80069; 81003; 82803; 82947; 83735; 83880; 84484; 85025; 90686; 93005; 93010; 93306; 94640; 96374; 99285-25; A9270; J1650; J1815; J1940; J2060; J2270